=== PATIENT | male | born 1970 | race Caucasian/White ===

== ENCOUNTER → 2020-06-14 17:09 | Outpatient (CLI) | payer BC, SELFPAY ==
--- NOTE | ~2020-06-14 | XR_ITS ---
EXAMINATION: XR lumbar spine min 4V DATE: 06/14/2020 17:26 INDICATION: Lumbago. Left-sided sciatica. TECHNIQUE: 5 views of lumbar spine were obtained. COMPARISON: None. FINDINGS: Bone alignment is normal. Vertebral body heights are normal. There is severely decreased di sc height at L5-S1. There is moderate facet joint osteoarthritis bilaterally at L5-S1. IMPRESSION: 1. Severe degenerative disc disease at L5-S1. Reviewed, dictated and finalized at location A.
== END ==
PROVIDERS: PCP Family Medicine; Visit Provider Family Medicine
DX: G89.29 Other chronic pain (principal); M54.42 Lumbago with sciatica, left side; M51.37 Other intervertebral disc degeneration, lumbosacral region
CPT/HCPCS: 72110

== ENCOUNTER 2020-07-26 07:53 | Outpatient (CLI) | payer BC, SELFPAY ==
--- NOTE | 2020-08-26 14:23 | WPDHOMESLEEP ---
Sleep Study - Home Unattended Date of Study: 07/26/20 Ordering Provider: Marko Norman MD Interpreting Physician: Jayne Stevenson MD Home Sleep Study Type: Apnea Link Air Height: 1.88 m Weight: 111.13 kg Body Mass Index: 31.4 Neck Circumference (inches): 18 [place]: 9 Reason for Sleep Study snoring and gasping Sleep History Jere Kc is a 50 year-old man who has a history of constant loud snoring. It bothers other people to the point they complain about it. He occasionally awakens at night with heartburn, belching or coughing. He occasionally awakens from sleep feeling short of breath. He occasionally has trouble sleep with a cold and occasionally gasps for breath during the night. He frequently has breathing problems at night observed by others. He occasionally sweats excessively at night. He rarely notices his heart pounding or beating irregularly at night. He occasionally falls asleep during the day, involuntarily but never while driving. He does not have loss of muscle tone was strong emotion. He occasionally has daytime difficulties due to excessive sleepiness. He is not afraid to go to sleep. He rarely has nightmares. He occasionally remembers his dreams. He occasionally has racing thoughts. He does not feel sad or depressed. He occasionally has anxiety. He does not have muscular tension, noticing parts of his body jerking, kick at night, have crawling and aching feelings in his legs or have leg pain during the night. He does not have morning jaw pain. He does not grind his teeth during sleep. He is not bothered by pain during the day. He occasionally is awakened by pain at night and wakes up feeling stiff in the morning. He does not wake up with sore achy muscles. He occasionally has pain in the spine. Normal bedtime is 8:00 p.m. falling asleep within 15 minutes waking 4 times at night for about 5 minutes. While awake he goes to the bathroom and gets a drink of water. He wakes the morning at 4:40 a.m.. He estimates 8 hours of sleep at night. On the weekends he goes to bed 1 hour later and wakes up at 6:00 a.m. He does not take naps. Most of the time he feels good in the morning Habits: Never smoked. Caffeine 2 servings per day. Alcohol 3 beverages per day. no recreational drugs. . [facility] Past Medical History Medical History (Updated 08/26/20 @ 14:59 by Jayne Stevenson MD) Abnormal fasting glucose Acute non-recurrent maxillary sinusitis Essential (primary) hypertension Hypersomnia Seasonal allergic rhinitis Surgical History Surgical History (Updated 08/26/20 @ 14:43 by Jayne Stevenson MD) History of ankle surgery Family History Family History Mother Hypertension Father Acute myocardial infarction Grandparent Cerebrovascular accident Family history of malignant neoplasm Social History Social History Smoking status: Never smoker Alcohol intake: current Medications Home Medications Medication Instructions Recorded Confirmed Type fluticasone propionate 50 1 spray NASAL BID #19.8 ml 12/14/19 06/14/20 Rx mcg/actuation nasal spray,suspension albuterol sulfate 90 mcg/actuation 2 inhalation INHALATION Q4H PRN 02/24/20 06/14/20 Rx aerosol inhaler #18 gm clomiphene citrate 50 mg tablet 50 mg PO DAILY #30 tablet 02/24/20 06/14/20 Rx meloxicam 15 mg tablet 15 mg PO DAILY PRN #30 tablet 06/14/20 06/14/20 Rx duloxetine 60 mg capsule,delayed 60 mg PO DAILY #30 cap 06/19/20 Rx release telmisartan 80 mg tablet 80 mg PO DAILY #30 tablet 08/10/20 Rx Sleep Procedure This test was performed using 4 channel monitoring including respiratory effort channel, snoring channel, heart rate channel, and oxygen saturation channel. This study was scored using CMS guidelines. Sleep Architecture Not applicable for home sleep test. Respiratory Analysis The recor
[2020-08-26 15:12] VITALS: BMI 31.4
== END 2020-07-26 07:54 | disposition home or self-care (01) ==
LOC: ANHCSM 07:53
PROVIDERS: PCP Family Medicine; Visit Provider Family Medicine
DX: G47.10 Hypersomnia, unspecified (principal); G47.33 Obstructive sleep apnea (adult) (pediatric)
CPT/HCPCS: 95806

== ENCOUNTER 2020-10-05 00:11 | Outpatient (CLI) | payer BC, SELFPAY ==
[2020-10-05 17:28] LABS: SARS-CoV-2 RNA PCR Negative
== END 2020-10-05 00:12 | disposition home or self-care (01) ==
LOC: ANHCOVIDDT 00:11
PROVIDERS: PCP Family Medicine; Visit Provider Internal Medicine Critical Care Medicine
DX: Z01.812 Encounter for preprocedural laboratory examination (principal); Z20.822 Contact with and (suspected) exposure to COVID-19
CPT/HCPCS: C9803; U0003; U0005

== ENCOUNTER 2020-10-07 09:45 | Outpatient (CLI) | payer BC, SELFPAY ==
--- NOTE | 2020-11-05 21:42 | WPDSLEEPSTUD ---
Sleep Study Date of Study: 10/07/20 Ordering Provider: Marko Norman MD Interpreting Physician: Jayne Stevenson MD Sleep Study Type: CPAP Titration Height: 1.83 m Weight: 112.491 kg Body Mass Index: 33.6 Neck Circumference: 45.72 cm [place]: 9 Reason for Sleep Study Home Sleep Test 07/26/2020 with AHI 12, lowest desaturation 70%, patient presents for a CPAP titration Sleep History Jere Kc is a 50 year-old man who has a history of constant loud snoring. It bothers other people to the point they complain about it. He occasionally awakens at night with heartburn, belching or coughing. He occasionally awakens from sleep feeling short of breath. He occasionally has trouble sleep with a cold and occasionally gasps for breath during the night. He frequently has breathing problems at night observed by others. He occasionally sweats excessively at night. He rarely notices his heart pounding or beating irregularly at night. He occasionally falls asleep during the day, involuntarily but never while driving. He does not have loss of muscle tone was strong emotion. He occasionally has daytime difficulties due to excessive sleepiness. He is not afraid to go to sleep. He rarely has nightmares. He occasionally remembers his dreams. He occasionally has racing thoughts. He does not feel sad or depressed. He occasionally has anxiety. He does not have muscular tension, noticing parts of his body jerking, kick at night, have crawling and aching feelings in his legs or have leg pain during the night. He does not have morning jaw pain. He does not grind his teeth during sleep. He is not bothered by pain during the day. He occasionally is awakened by pain at night and wakes up feeling stiff in the morning. He does not wake up with sore achy muscles. He occasionally has pain in the spine. Normal bedtime is 8:00 p.m. falling asleep within 15 minutes waking 4 times at night for about 5 minutes. While awake he goes to the bathroom and gets a drink of water. He wakes the morning at 4:40 a.m.. He estimates 8 hours of sleep at night. On the weekends he goes to bed 1 hour later and wakes up at 6:00 a.m. He does not take naps. Most of the time he feels good in the morning Habits: Never smoked. Caffeine 2 servings per day. Alcohol 3 beverages per day. no recreational drugs. . [facility] Past Medical History Medical History Abnormal fasting glucose (07/05/20) Acute non-recurrent maxillary sinusitis BMI 33.0-33.9,adult Essential (primary) hypertension Hypersomnia Seasonal allergic rhinitis Surgical History Surgical History History of ankle surgery Family History Family History Mother Hypertension Father Acute myocardial infarction Grandparent Cerebrovascular accident Family history of malignant neoplasm Social History Social History (Updated 10/17/20 @ 16:31 by Geovanna Martinez MA) Smoking status: Never smoker Alcohol intake: current Drinks per week: 10 Substance use: never Substance use type: does not use Medications Home Medications Medication Instructions Recorded Confirmed Type fluticasone propionate 50 1 spray NASAL BID #19.8 ml 12/14/19 06/14/20 Rx mcg/actuation nasal spray,suspension albuterol sulfate 90 mcg/actuation 2 inhalation INHALATION Q4H PRN 02/24/20 06/14/20 Rx aerosol inhaler #18 gm clomiphene citrate 50 mg tablet 50 mg PO DAILY #30 tablet 02/24/20 06/14/20 Rx meloxicam 15 mg tablet 15 mg PO DAILY PRN #30 tablet 06/14/20 06/14/20 Rx duloxetine 60 mg capsule,delayed 60 mg PO DAILY #30 cap 06/19/20 Rx release telmisartan 80 mg tablet 80 mg PO DAILY #30 tablet 08/10/20 Rx metoprolol succinate 50 mg 50 mg PO DAILY #30 tablet 09/02/20 Rx tablet,extended release 24 hr sildenafil 100 mg tablet 100 mg P
[2020-11-05 21:44] VITALS: BMI 33.6
== END 2020-10-07 09:46 | disposition home or self-care (01) ==
LOC: ANHCSM 09:46
PROVIDERS: PCP Family Medicine; Visit Provider Family Medicine
DX: G47.33 Obstructive sleep apnea (adult) (pediatric) (principal)
CPT/HCPCS: 95811

== ENCOUNTER 2021-12-11 01:11 | Day surgery (SDC) | payer BC, SELFPAY ==
[2021-11-29 13:38] VITALS: BMI 32.2
[2021-12-11 07:48] VITALS: BMI 31.8
[2021-12-11 07:51] VITALS: BP 134/88; PULSE 73; RESP 16; TEMP 36.2; O2SAT 98
[2021-12-11] MEDS: LACTATED RINGERS 1,000 ML 150 ML IV CONT (07:53)
--- NOTE | 2021-12-11 08:20 | PM.HPGS ---
History of Present Illness History of Present Illness Consent: Risks, benefits, and alternatives have been discussed and questions answered. Patient agrees to proceed with procedure. Chief complaint: neoplasm screening Narrative: Jere Kc is a 51 year old male here for first screening colonoscopy Review of Systems Constitutional: Constitutional: Denies headache(s) and Denies weakness Eyes: Eyes: Denies blurry vision ENT: Reports Normal hearing present, Denies headache(s) and Denies neck pain Cardiovascular: Cardiovascular: Denies chest pain and Denies dyspnea Respiratory: Respiratory: Denies dyspnea Gastrointestinal: Gastrointestinal: Reports no additional gastrointestinal complaints Genitourinary: Genitourinary: Denies dysuria Musculoskeletal: Musculoskeletal: Denies neck pain Integumentary/Breasts: Skin/Breast: Denies dry skin Neurologic: Reports Normal hearing present, Denies headache(s) and Denies weakness Psychiatric: Psychiatric: Denies anxiety Endocrine: Endocrine: Denies change in body appearance Hematologic/Lymphatic: Hematologic/Lymphatic: Denies easy bleeding Allergic/Immunologic: Allergic/Immunologic: Denies urticaria PMF Past Medical History Medical History (Updated 12/11/21 @ 08:20 by Jose Tai MD) Abnormal fasting glucose (07/05/20) Acute non-recurrent maxillary sinusitis BMI 33.0-33.9,adult BMI 35.0-35.9,adult BMI 36.0-36.9,adult Chronic depression Colon cancer screening COVID-19 (~08/23/21) Encounter for prostate cancer screening Essential (primary) hypertension Hypersomnia Mixed hyperlipidemia Neoplasm of skin Otitis media Seasonal allergic rhinitis Surgical History Surgical History History of ankle surgery Family History Family History Mother Hypertension Father Acute myocardial infarction Grandparent Cerebrovascular accident Family history of malignant neoplasm Social History Social History (Updated 10/17/20 @ 16:31 by Geovanna Martinez MA) Smoking status: Never smoker Alcohol intake: current Drinks per week: 14 Substance use: never Substance use type: does not use Living arrangements: with family Spiritual care concerns: No Meds Home Medications and Allergies Home Medications Medication Instructions Recorded Confirmed Type fluticasone propionate 50 1 spray NASAL BID #19.8 ml 12/14/19 12/11/21 Rx mcg/actuation nasal spray,suspension albuterol sulfate 90 mcg/actuation 2 inhalation INHALATION Q4H PRN 02/24/20 12/11/21 Rx aerosol inhaler #18 gm sildenafil 100 mg tablet 100 mg PO DAILY PRN #10 tablet 09/19/20 11/29/21 Rx ibuprofen 800 mg tablet 800 mg PO TID PRN #90 tablet 01/23/21 12/11/21 Rx metoprolol succinate 50 mg 50 mg PO DAILY #30 tablet 07/31/21 12/11/21 Rx tablet,extended release 24 hr telmisartan 80 mg tablet 80 mg PO DAILY #90 tablet 08/02/21 12/11/21 Rx scopolamine base 1 mg over 3 days 1 patch TRANSDERMAL Q72H PRN #3 ea 08/07/21 12/11/21 Rx transdermal patch cefdinir 300 mg capsule 300 mg PO Q12H #20 cap 12/06/21 12/11/21 Rx Allergies Allergy/AdvReac Type Severity Reaction Status Date / Time cetirizine Allergy Unknown Hives Verified 12/11/21 07:46 Vital Signs Vital Signs - 24 hr 12/11/21 07:51 Temperature 97.2 F L Pulse Rate 73 Respiratory Rate 16 Blood Pressure 134/88 Pulse Oximetry 98 Exam Const: General: comfortable and no acute distress HENMT: General nose exam: Normal nares present Eyes: General: appearance normal, both eyes and all related structures Neck: Neck: no JVD Resp: Auscultation: clear to auscultation bilaterally Cardio: Rate: regular rate Rhythm: regular rhythm GI: Inspection: non-distended GI Palp: Yes Soft to palpation Skin: General skin exam: normal color Neuro: General: gait normal Speech: normal speech Extrem:
--- NOTE | 2021-12-11 08:25 | WPDANESEPPF ---
Anes - Initial Pre Proc Eval Procedure: Operation Date: 12/11/21 09:00 Proposed Procedures p Screening Colonoscopy - Jose Tai MD Date/Time: 12/11/21 08:25 Surgeon: Jose Tai MD Pre Op Diagnosis: neoplasm screening Patient Data Age: 51 Gender: M Height: 1.88 m Weight: 112.4 kg Last Vital Signs Temp 97.2 F L 12/11/21 07:51 Pulse 73 12/11/21 07:51 Resp 16 12/11/21 07:51 BP 134/88 12/11/21 07:51 Pulse Ox 98 12/11/21 07:51 Allergies Allergy/AdvReac Type Severity Reaction Status Date / Time cetirizine Allergy Unknown Hives Verified 12/11/21 07:46 Home Medications Medication Instructions Recorded Confirmed Type fluticasone propionate 50 1 spray NASAL BID #19.8 ml 12/14/19 12/11/21 Rx mcg/actuation nasal spray,suspension albuterol sulfate 90 mcg/actuation 2 inhalation INHALATION Q4H PRN 02/24/20 12/11/21 Rx aerosol inhaler #18 gm sildenafil 100 mg tablet 100 mg PO DAILY PRN #10 tablet 09/19/20 11/29/21 Rx ibuprofen 800 mg tablet 800 mg PO TID PRN #90 tablet 01/23/21 12/11/21 Rx metoprolol succinate 50 mg 50 mg PO DAILY #30 tablet 07/31/21 12/11/21 Rx tablet,extended release 24 hr telmisartan 80 mg tablet 80 mg PO DAILY #90 tablet 08/02/21 12/11/21 Rx scopolamine base 1 mg over 3 days 1 patch TRANSDERMAL Q72H PRN #3 ea 08/07/21 12/11/21 Rx transdermal patch cefdinir 300 mg capsule 300 mg PO Q12H #20 cap 12/06/21 12/11/21 Rx Patient hx anesthesia problems: none Family hx anesthesia problems: none Results Review: All pre-operative results and documents have been reviewed as part of the pre-operative evaluation. [facility] Past Medical History Medical History (Updated 12/11/21 @ 08:20 by Jose Tai MD) Abnormal fasting glucose (07/05/20) Acute non-recurrent maxillary sinusitis BMI 33.0-33.9,adult BMI 35.0-35.9,adult BMI 36.0-36.9,adult Chronic depression Colon cancer screening COVID-19 (~08/23/21) Encounter for prostate cancer screening Essential (primary) hypertension Hypersomnia Mixed hyperlipidemia Neoplasm of skin Otitis media Seasonal allergic rhinitis Surgical History Surgical History History of ankle surgery Family History Family History Mother Hypertension Father Acute myocardial infarction Grandparent Cerebrovascular accident Family history of malignant neoplasm Social History Social History (Updated 10/17/20 @ 16:31 by Geovanna Martinez MA) Smoking status: Never smoker Alcohol intake: current Drinks per week: 14 Substance use: never Substance use type: does not use Living arrangements: with family Spiritual care concerns: No Anes - Eval Final PreProcedure Day of Procedure 12/11/21 08:25 Patient weight: obese Heart: regular rate and rhythm Lungs: clear to auscultation Airway: Mallampati scale Neurological: alert and oriented Last oral intake: >/= 8 hours ASA classification: III Emergent: no Anesthetic plan: proceed Anesthesia type and monitoring: general GIVS and standard monitoring Results Review: All pre-operative results and documents have been reviewed as part of the pre-operative evaluation. Informed Consent: The patient's anesthetic plan and its attendant risks and benefits were discussed with the patient/family/POA. Questions were solicited and answers provided to the satisfaction of the patient/family/POA.
[2021-12-11 08:48] VITALS: BP 109/67; PULSE 71; RESP 18; O2SAT 96
[2021-12-11 08:58] VITALS: BP 118/80; PULSE 68; RESP 17; O2SAT 95
[2021-12-11 09:08] VITALS: BP 122/88; PULSE 66; RESP 16; O2SAT 99
== END 2021-12-11 09:11 | disposition home or self-care (01) ==
PROVIDERS: PCP Family Medicine; Visit Provider Internal Medicine Gastroenterology
PROC: 0DJD8ZZ Inspection of Lower Intestinal Tract, Via Natural or Artificial Opening Endoscopic (ICD-10-PCS; CPT 45378; principal; 2021-12-11 09:00)
DX: Z12.11 Encounter for screening for malignant neoplasm of colon (principal); D12.8 Benign neoplasm of rectum; K63.5 Polyp of colon; K64.8 Other hemorrhoids; Z79.51 Long term (current) use of inhaled steroids; E78.2 Mixed hyperlipidemia; F32.9 Major depressive disorder, single episode, unspecified; Z86.16 Personal history of COVID-19; I10 Essential (primary) hypertension; G47.10 Hypersomnia, unspecified; R73.09 Other abnormal glucose; E66.9 Obesity, unspecified; Z68.31 Body mass index [BMI] 31.0-31.9, adult
CPT/HCPCS: 43235; 88305; J2001; J2704; J7120

== ENCOUNTER → 2023-02-05 15:36 | Outpatient (CLI) | payer BC, SELFPAY ==
--- NOTE | ~2023-02-05 | XR_ITS ---
EXAMINATION: XR chest 2V 02/05/2023 15:45 INDICATION: Chronic productive cough PROCEDURE: 2 view chest COMPARISON: No prior studies for comparison. FINDINGS: The lungs are clear. The cardiomediastinal silhouette is within normal limits. There are no pleural effusions. There is no pneumothorax suspected. IMPRESSION: 1: NO ACUTE CARDIOPULMONARY DISEASE. Reviewed, dictated and finalized at location L.
== END ==
PROVIDERS: PCP Family Medicine; Visit Provider Family Medicine
DX: R05.3 Chronic cough (principal)
CPT/HCPCS: 71046

== ENCOUNTER 2023-02-28 08:06 | Outpatient (CLI) | payer BC, SELFPAY ==
--- NOTE | 2023-02-28 12:25 | WPDPFTINT ---
PFT Procedure Performed PFT Procedure Performed Spirometry with Pre/Post Bronchodilator Plethysmography (Lung Vol) Diffusing Cap (DLCO) Flow Vol Loop PFT Interpretation Lung volumes were measured with the body plethysmography method. Lung volumes are unremarkable. Spirometry showed diminished expiratory flow rates and a diminished FEV1 to FVC ratio of 63%, indicative of obstructive airway disease. Following administration of a bronchodilator there was no significant increase in the expiratory flow rates. Lung diffusion capacity is within the normal range at 120% predicted. The flow-volume loop is unremarkable. Impression: Mild obstructive airway disease with no response to bronchodilators on this testing. Lung diffusion capacity within the normal range.
== END 2023-02-28 08:07 | disposition home or self-care (01) ==
PROVIDERS: PCP Family Medicine; Visit Provider Family Medicine
DX: R05.3 Chronic cough (principal); R94.2 Abnormal results of pulmonary function studies
CPT/HCPCS: 94060; 94726; 94729

== ENCOUNTER 2023-04-08 08:11 | Outpatient (CLI) | payer BC, SELFPAY ==
--- NOTE | ~2023-04-08 | CT_ITS ---
CT Scan of the Chest without Contrast: Clinical Indication: Cough Technique: Contiguous sections were acquired throughout the chest without intravenous contrast. Dose reduction technique was used on this scan by utilizing automated exposure control and iterative recon struction technique. The dose-length product (DLP) was 616.68 mGy-cm. Findings: There is no evidence of any significant mediastinal, hilar or axillary lymphadenopathy. The mediastin al soft tissues appear normal. There is no evidence of pleural or pericardial effusion. The lungs are clear. No pulmonary nodules or infiltrates are noted. Images through the upper abdomen reveal no abnormalities. Impression: No significant abnormalities seen. Reviewed, dictated and finalized at location . Impression: No significant abnormalities seen.
== END 2023-04-08 08:12 | disposition home or self-care (01) ==
PROVIDERS: PCP Family Medicine; Visit Provider Physician Assistant
DX: R05.3 Chronic cough (principal)
CPT/HCPCS: 71250

== ENCOUNTER 2024-12-17 06:17 | Emergency (ER) | payer BC, SELFPAY ==
[2024-12-17] VITALS (33 sets, daily range): BP systolic 113–144; BP diastolic 68–94; PULSE 74–99; RESP 11–27; TEMP 36.4; O2SAT 95–99
--- NOTE | ~2024-12-17 | XR_ITS ---
Clinical Indication: Chest pain PA and lateral views of the chest: Comparison: 02/05/2023 Findings: The lungs are clear, without evidence of focal consolidation or pleural effusion. Cardiome diastinal silhouette is within normal limits. Bones and soft tissues are unremarkable. Impression: Normal chest. Reviewed, dictated and finalized at location . Impression: Normal chest.
--- NOTE | 2024-12-17 06:19 | ECG_ITS ---
Test Date: 2024-12-17 06:26:12 Measurements Intervals [place] Rate: 93 P: 49 GA: 180 QRS: -22 QRSD: 102 T: 64 QT: 328 QTc: 410 Interpretive Statements SINUS RHYTHM INCOMPLETE RIGHT BUNDLE BRANCH BLOCK BASELINE ARTIFACT- I, II, AVR, AVL BORDERLINE ECG No previous ECG available for comparison Electronically Signed On 12-17-2024 07:50:19 CDT by Evaristo Ferrer D.O.
--- OUTSIDE RECORDS SUMMARY | 2024-12-17 06:19 | XMS_ITS ---
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 Name Role Phone Norma Pedro Unavailable [phone] REASON FOR VISIT Chronic upper airway symptoms concerning for uncontrolled atopic disease, Chronic lower airways symptoms concerning for possible asthma Problems Problem Type SNOMED Code ICD Code Onset Dates Problem Status W/U Status Risk Notes Problem Allergic rhinitis caused by pollen (disorder) (30041145) Allergic rhinitis due to pollen (J30.1) Active confirmed Problem Allergic rhinitis caused by animal hair and dander (882082993428959) Allergic rhinitis due to animal (cat) (dog) hair and dander (J30.81) Active confirmed Problem Allergic rhinitis (03711374) Other allergic rhinitis (J30.89) Active confirmed Problem Chronic allergic conjunctivitis (96017924) Other chronic allergic conjunctivitis (H10.45) Active confirmed Problem Chronic rhinitis (86335351) Chronic rhinitis (J31.0) Active confirmed Problem Uncomplicated moderate persistent asthma (526448166) Moderate persistent asthma, uncomplicated (J45.40) Active confirmed Problem Uncomplicated mild persistent asthma (641667356) Mild persistent asthma, uncomplicated (J45.30) Active confirmed Problem Uncomplicated severe persistent asthma (578092444) Severe persistent asthma, uncomplicated (J45.50) Active confirmed Encounters Encounter Location Date Provider Diagnosis [facility] [address] [address] 08/07/2023 Norma Pedro Allergic rhinitis du e to pollen J30.1 ; Allergic rhinitis due to animal (cat) (dog) hair and dander J30.81 ; Other allergic rhinitis J30.89 ; Other chronic allergic conjunctivitis H10.45 ; Hypertrophy of nasal turbinates J34.3 ; Chronic rhinitis J31.0 ; Moderate persistent asthma, uncomplicated J45.40 ; Mild persistent asthma, uncomplicated J45.30 and Severe persistent asthma, uncomplicated J45.50 Assessments Encounter Date Diagnosis (ICD Code) Assessment Notes Treatment Notes Treatment Clinical Notes Section Notes 08/07/2023 Allergic rhinitis due to pollen (ICD-10 - J30.1) Given the history and symptoms, skin testing was performed to common aeroallergens to determine atopic status. clearly suffers from atopic disease based upon our skin testing and clinical history. Accordingly, we have introduced a new, aggressive medication regimen, discussed nasal washes and allergy-specific avoidance measures. We also discussed adjunctive therapies including subcutaneous, specific allergen immunotherapy as relates to the treatment and prevention of atopic disease. They are currently considering the risks, benefits and alternatives to this care. Risks: bleeding, infection, allergic reaction, anaphylaxis; Benefits: reduced need for medications, improved symptoms, disease modification. Alternatives: watch/wait, change medication regimen, improve allergy avoidance measures. Follow-up in 1 month for interval evaluation and management 08/07/2023 Allergic rhinitis due to animal (cat) (dog) hair and dander (ICD-10 - J30.81) Follow allergen avoidance, meds and consider SCIT as an adjunctive treatment to current regimen 08/07/2023 Other allergic rhinitis (ICD-10 - J30.89) Follow allergen avoidance, meds and consider SCIT as an adjunctive treatment to current regimen 08/07/2023 Other chronic allergic conjunctivitis (ICD-10 - H10.45) Given ocular signs and symptoms I encouraged allergy avoidance measures and meds as above. If symptoms persist, consider adding additional medications including intraocular antihistamine/mas t cell stabilizer, PRN and consider SCIT as an adjunctive measure 08/07/2023 Hypertrophy of nasal turbinates (ICD-10 - J34.3) 08/07/2023 Chronic rhinitis (ICD-10 - J31.0) 08/07/2023 Moderate persistent asthma, uncomplicated (ICD-10 - J45.40) 08/07/2023 Mild persistent asthma, uncomplicated (ICD-10 - J45.30) 08/07/2023 Severe persistent asthma, uncomplicated (ICD-10 - J45.50) Plan Of Treatment Treatment Notes Assessment Notes Allergic rhinitis due to pollen Given th e history and symptoms, skin testing was performed to common aeroallergens to determine atopic status. clearly suffers from atopic disease based upon our skin testing and clinical history. Accordingly, we have introduced a new, aggressive medication regimen, discussed nasal washes and allergy-specific avoidance measures. We also discussed adjunctive therapies including subcutaneous, specific allergen immunotherapy as relates to the treatment and prevention of atopic disease. They are currently considering the risks, benefits and alternatives to this care. Risks: bleeding, infection, allergic reaction, anaphylaxis; Benefits: reduced need for medications, improved symptoms, disease modification. Alternatives: watch/wait, change medication regimen, improve allergy avoidance measures. Follow-up in 1 month for interval evaluation and management Allergic rhinitis due to ani mal (cat) (dog) hair and dander Follow allergen avoidance, meds and consider SCIT as an adjunctive treatment to current regimen Other allergic rhinitis Follow allergen avoidance, meds and consider SCIT as an adjunctive treatment to current regimen Other chronic allergic conjunctivitis Gi augustine ocular signs and symptoms I encouraged allergy avoidance measures and meds as above. If symptoms persist, consider adding additional medications including intraocular antihistamine/mast cell stabilizer, PRN and consider SCIT as an adjunctive measure Next Appt Details Follow Up: 4 Weeks, Reason: Evaluation and Management Progress Notes * Jere BEAULIEUDOB: 1 (54 yo M)Acc No.[id number]:08/07/2023 Progress Notes Patient: Jere RODRIGUEZ Provider: ED WaldropP-BC :1970 A ge:53 Y S ex:Male Date:08/07/2023 Address:[address] [place], [place] [id number] Subjective: * Chief Complaints: * 1 . Chronic upper airway symptoms concerning for uncontrolled atopic disease. 2. Chronic lower airways symptoms concerning for possible asthma. * HPI: * Introduction: I had the pleasure of seeing x . * ROS: A LLERGY: Positive p er the HPI and history, otherwise unremarkable.? S PECIAL SENSES: Positve for n one. C ONSTITUTIONAL: Positive for n one. E NT: Positive p er the HPI and history, otherwise unremarkable.? R ESPIRATORY: Positive p er the HPI and history, otherwise unremakable.? O PHTHALMOLOGY: Positive for p er the HPI and history, otherwise unremarkable. E NDOCRINOLOGY: Positive for n one. C ARDIOLOGY: Positive for n one. G ASTROENTEROLOGY: Positive for n one. U ROLOGY: Positive for n one. D ERMATOLOGY: Positive for p er the HPI and history, otherwise unremakable. N EUROLOGY: Positive for n one. H EMATOLOGY/LYMPH: Positive for n one. M USCULOSKELETAL: Positive for n one. P SYCHOLOGY: Positive for n one. A ll other review of systems per the HPI and history, otherwise unremarkable. * Medical History: Objective: * Vitals: * Examination: G eneral examination: General appearance: p leasant, well-developed, well-nourished. HEENT: p upils equal, round, and reactive to light and accommodation, conjunctiva are injected bilaterally, no tenderness to palpation of the sinuses, TM's without evidence of acute infection, turbinates 2+ swollen and pale inferiorly bilaterally, clear rhinorrhea is present, no polyps noted, no septal perforation, posterior oropharynx is erythematous and cobblestoning is present, erythema on pharyngeal wall, no exudates, no tongue swelling, and uvula is midline. Oral cavity: n ormal, no lesions. Neck, thyroid : s upple, non-tender, no anterior cervical lymphadenopathy. Breasts : n ot performed. Heart: R RR, S1-S2, no murmurs, no rubs, no gallops. Lungs: c lear to auscultation and percussion in all lung smith, no wheezes or crackles. Abdomen: s oft, NT/ND, normal active bowel sounds. Neurologic exam: u nremarkable. Skin: n ormal, no rash, dermatographism, urticaria, angioedema. Peripheral pulses: n ormal (2+) bilaterally. Back: n ormal. Extremities: n ormal ROM, no clubbing, no cyanosis, no edema. Genitalia: n ot performed. Assessment: * Assessment: 1. A llergic rhinitis due to pollen - J30.1 (Primary) 2 . A llergic rhinitis due to animal (cat) (dog) hair and dander - J30.81 3 . O ther allergic rhinitis - J30.89 4 . O ther chronic allergic conjunctivitis - H10.45 5 . H ypertrophy of nasal turbinates - J34.3 6 . C hronic rhinitis - J31.0? 7. M oderate persistent asthma, uncomplicated - J45.40 8 . M ild persistent asthma, uncomplicated - J45.30 9 . S evere persistent asthma, uncomplicated - J45.50 Plan: * Treatment: 2. A llergic rhinitis due to animal (cat) (dog) hair and dander Notes: Follow allergen avoidance, meds and consider SCIT as an adjunctive treatment to current regimen 3. O ther allergic rhinitis Notes: Follow allergen avoidance, meds and consider SCIT as an adjunctive treatment to current regimen 4. O ther chronic allergic conjunctivitis Notes: Given ocular signs and symptoms I encouraged allergy avoidance measures and meds as above. If symptoms persist, consider adding additional medications including intraocular antihistamine/mast cell stabilizer, PRN and consider SCIT as an adjunctive measure * Procedure Codes: 9 5004 PRICK TESTS, Units: 72.00 , 66310 INTRADERMAL TESTS, 29706 MEASURE BLOOD OXYGEN LEVEL, 20867 SELF-MGMT EDUC & TRAIN, 1 PT, S9441 ASTHMA ED NON-MD PROV PER SESSION, 01918 PT-FOCUSED HLTH RISK ASSMT, G8427 DOC MEDS VERIFIED W/PT OR RE * Preventive Medicine: Counseling: M edication instruction: W atch for side effects of prescribed medications, Nasal steroid/antihistamine instruction: avoid septum. E ducation: G ENERAL EDUCATION: Our staff spent an additional 30 minutes in direct contact with the patient educating them on their current diagnoses and proper treatment and prevention of symptoms and the proper use of medications. E ducation 2: A RC EDUCATION: Our staff discussed the appropriate allergen avoidance measures and medication utilization including upper airway hygiene with daily nasal washes given the patient's clinical status and diagnoses. SCIT EDUCATION: Discussed allergy immunotherapy including the relative risks, benefits and alternatives to this treatment as an adjunctive measure to current therapy, Allergy Immunotherapy: Risks: bleeding, infection, allergic reaction, anaphylaxis = severe allergic reaction that can cause ; Benefits: reduced need for medications, improved symptoms, disease modification. Alternatives: watch/wait, change medication regimen, improve allergy avoidance measures, Our staff discussed the warning signs of anaphylaxis and the indications to use self-injectable epinephrine and seek urgent or emergent care. P atient education material sent to portal? Y es * Follow Up: 4 Weeks (Reason: Evaluation and Management) * Billing Information: * Visit Code: * Procedure Codes: 50705 PRICK TESTS. Units: 72.00. 76513 INTRADERMAL TESTS. 64772 MEASURE BLOOD OXYGEN LEVEL. 24087 SELF-MGMT EDUC & TRAIN, 1 PT. S9441 ASTHMA ED NON-MD PROV PER SESSION. 65688 PT-FOCUSED HLTH RISK ASSMT. G8427 DOC MEDS VERIFIED W/PT OR RE. * Electronic signature of DUKE López on 12/17/2024 at 06:19 AM CDT Sign off status: Pending * Provider: DUKE Waldrop Date: 1 10/07/2022 Generated for Franklin silva/Jim/Ankur on: 0 12/17/2024 06:19 AM CDT History and Physical Notes * HPI (History of Present Illness) Category Sub-Category Detail Notes Category Not es *Introduction I had the pleasure of seeing x Examination Category Sub-Category Detail Notes Category Not es General examination HEENT: pupils equal , round, and reactive to light and accommodation, conjunctiva are injected bilaterally, no tenderness to palpation of the sinuses, TM's without evidence of acute infection, turbinates 2+ swollen and pale inferiorly bilaterally, clear rhinorrhea is present, no polyps noted, no septal perforation, posterior oropharynx is erythematous and cobblestoning is present, erythema on pharyngeal wall, no exudates, no tongue swelling, and uvula is midline Neck, thyroid : supple, non-tender, no anterior cervical lymphadenopathy Heart: RRR, S1-S2, no murmu rs, no rubs, no gallops Lungs: clear to auscultatio n and percussion in all lung smith, no wheezes or crackles Abdomen: soft, NT/ND, normal active bowel sounds Extremities: normal ROM, no clubb ing, no cyanosis, no edema General appearance: pleasant, well-devel oped, well-nourished Skin: normal, no rash, aliza matographism, urticaria, angioedema Neurologic exam: unremarkable Oral cavity: normal, no lesions Breasts : not performed Peripheral pulses: normal (2+) bilatera lly Back: normal Genitalia: not performed
--- OUTSIDE RECORDS SUMMARY | 2024-12-17 06:20 | XMS_ITS | Patient Health Record ---
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 Name Role Phone Norma Pedro Unavailable [phone] Reason For Referral No Information Problems Problem Type SNOMED Code ICD Code Onset Dates Problem Status W/U Status Risk Notes Problem Chronic allergic conjunctivitis (44684602) Other chronic allergic conjunctivitis (H10.45) Active confirmed Problem Allergic rhinitis caused by pollen (disorder) (65117380) Allergic rhinitis due to pollen (J30.1) Active confirmed Problem Allergic rhinitis (20761279) Other allergic rhinitis (J30.89) Active confirmed Problem Chronic rhinitis (81772514) Chronic rhinitis (J31.0) Active confirmed Problem Uncomplicated mild persistent asthma (265638218) Mild persistent asthma, uncomplicated (J45.30) Active confirmed Problem Uncomplicated moderate persistent asthma (026512091) Moderate persistent asthma, uncomplicated (J45.40) Active confirmed Problem Uncomplicated severe persistent asthma (266398617) Severe persistent asthma, uncomplicated (J45.50) Active confirmed Problem Allergic rhinitis caused by animal hair and dander (775173242268430) Allergic rhinitis due to animal (cat) (dog) hair and dander (J30.81) Active confirmed Plan Of Treatment No Information Insurance Providers Payer Name Payer Address Payer Phone Subscriber Number Group Number Insured Name Patient Relationship to Insured Coverage Start Date Coverage End Date [facility] [id number] [place] [address] [phone] [id number] Jere Kc Self - patient is the insured
--- OUTSIDE RECORDS SUMMARY | 2024-12-17 06:20 | XMS_ITS ---
Author Organization [facility] Address [address] [place] [address] Care Team Providers Care Licsw Name Role Phone Norma Pedro Unavailable [phone] Tayler [place] Unavailable [phone] REASON FOR VISIT QUALITY CONTROL LEAD Allergies Encounters Encounter Location Date Provider Diagnosis [facility] [address] [place] [address] 08/21/2023 Tayler [place] Plan Of Treatment No Information Progress Notes * Jere BEAULIEUDOB: 1 (54 yo M)Acc No.[id number]:08/21/2023 Progress Notes Patient: Jere RODRIGUEZ Provider: Pio [place] MD :1970 A ge:53 Y S ex:Male Date:08/21/2023 Address:[address] [place], [place] [id number] Subjective: * Chief Complaints: * 1 . QUALITY CONTROL LEAD Allergies. * Medical History: Objective: * Vitals: Assessment: Plan: * Treatment: * Billing Information: * Visit Code: * Procedure Codes: * Electronic signature of Gillian [place] MD on 12/17/2024 at 06:19 AM CDT Sign off status: Pending * Provider: Pio [place] MD Date: 1 10/22/2022 Generated for Franklin silva/Jim/eTransmitting on: 0 12/17/2024 06:19 AM CDT
[2024-12-17 06:33] LABS: Basophils Absolute Auto 0.1 K/mm3 (0.0-0.1); Basophils Percent Auto 0.6 % (0.2-1.2); Eosinophils Absolute Auto 0.3 K/mm3 (0-0.3); Hematocrit 47.6 % (42.0-52.0); Hemoglobin 16.2 g/dL (14.0-18.0); Immature Granulocyte Absolute 0.04 K/mm3 (0.00-0.031); Immature Granulocyte Percent A 0.3 % (0-0.5); Lymphocytes Absolute Auto 1.39 K/mm3 (0.9-3.2); Lymphocytes Percent Auto 10.8 % (18.3-44.2); Mean Corpuscular Hemoglobin 31.4 pg (26-34); Mean Corpuscular Volume 92.2 fl (80-100); Mean Platelet Volume 9.7 fl (7.4-10.4); Monocytes Absolute Auto 0.9 K/mm3 (0.1-0.6); Monocytes Percent Auto 6.8 % (2.6-8.5); Neutrophils Absolute Auto 10.2 K/mm3 (1.3-6.7); Neutrophils Percent Auto 79.5 % (45.5-73.1); Platelet Count Result 182 k/mm3 (150-375); Red Blood Count 5.16 M/mm3 (4.6-6.20); Red Cell Distribution Width 13.1 % (11.5-14.5); White Blood Count 12.9 K/mm3 (4.5-10.0)
[2024-12-17 06:45] LABS: Alanine Aminotransferase 31 U/L (6-50); Albumin Level 4.8 g/dL (3.5-5.1); Alkaline Phosphatase 71 U/L (38-126); Anion Gap 9 mmol/L (4-12); Aspartate Amino Transferase 25 U/L (17-59); Bilirubin,Total 1.1 mg/dL (0.2-1.3); Blood Urea Nitrogen 20 mg/dL (9-20); Calcium 9.5 mg/dL (8.4-10.2); Carbon Dioxide 25 mmol/L (22-30); Chloride 101 mmol/L (98-107); Estimated CRCL calculation 94 ml/min; Estimated Glomerular Filt Rate > 60; Glucose 111 mg/dL (65-110); Lipase 265 U/L (23-300); Potassium 4.6 mmol/L (3.4-5.0); Sodium 135 mmol/L (137-145)
[2024-12-17 06:46] LABS: INR 0.9; Prothrombin Time 12.7 Seconds (11.1-14.7)
[2024-12-17 06:47] LABS: Partial Thromboplastin Time 27.6 Seconds (22.3-36.8)
[2024-12-17 06:56] LABS: Troponin I < 0.012 ng/mL (0.000-0.034)
[2024-12-17] MEDS: FAMOTIDINE 20 MG/2 ML VIAL IV PUSH (07:25)
[2024-12-17] MEDS: BELLADONNA ALK/PHENOB ELIX 10 ML, MAG HYDROX/ALUMINUM HYD/SIMETH 30 ML, LIDOCAINE 2% VI... PO (07:26)
[2024-12-17] MEDS: PANTOPRAZOLE SODIUM IV 40 MG VIAL IV PUSH (07:26)
--- NOTE | 2024-12-17 07:49 | ED_ITS ---
HPI - General Adult General Chief complaint: Chest Pain Stated complaint: chest pain Time Seen by Provider: 12/17/24 06:56 History of Present Illness HPI narrative: 54-year-old male presenting to the emergency department for evaluation for epigastric pain and hiccups. Patient has had worsening symptoms over the last few days. Patient states he does have a sore throat and does have some pain with swallowing and describes a chest tightness. Patient states he does take Tums and this has not been helping. Patient does have a history of heartburn. Patient has never had a scope by GI. Patient does take ibuprofen and does drink alcohol daily. Patient has no prior cardiac history. Patient does have history of hypertension, high cholesterol and suspected diabetes. Related Data Allergies Allergy/AdvReac Type Severity Reaction Status Date / Time cetirizine Allergy Unknown Hives Verified 12/17/24 06:17 Review of Systems 2 Review of Systems: All systems reviewed & are unremarkable except as noted in HPI and below PMFSH Past Medical History Medical History (Updated 12/17/24 @ 13:56 by Marko Norman MD) GERD (gastroesophageal reflux disease) Shortness of breath Spermatocele Grieving father December, at age of 91. 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 Normal chest x-ray 02/05/2023. pulmonary function study on 02/28/2023 reveals mild obstructive defect with no improvement with bronchodilator. CT of the chest on 04/08/2023 was unremarkable. BMI 34.0-34.9,adult Obesity (BMI 30.0-34.9) Polyp of colon (12/11/21) 2 small colon polyps on for screening colonoscopy 12/11/[address] Aceves with recheck in 5 years . Colon cancer screening COVID-19 (~08/23/21) BMI 35.0-35.9,adult Mixed hyperlipidemia Total cholesterol 176, HDL 33, triglycerides 491, LDL not calculated 07/21/2022. Total cholesterol 180, HDL 28, triglycerides 617, LDL not calculated, ratio 6.4 on 01/26/2023. cholesterol 163, triglycerides 387, HDL 30, LDL 81 with ratio of 5.4 on 08/16/2023. Cholesterol 153, triglycerides 207 is 35, LDL 82 with ratio 4.4 on 03/04/2024. Cholesterol 163, triglycerides 435, HDL 29, LDL not calculated, ratio 5.6 on 09/12/2024. Neoplasm of skin (08/06/22) 0.3 cm raised, pearly lesion left posterior regular posterior auricular area and 0.8 cm raised, flesh colored macule right lateral thigh 08/06/2022. Chronic depression BMI 36.0-36.9,adult Encounter for prostate cancer screening PSA 0.57 on 08/16/2023. PSA 0.78 on 09/12/2024. Otitis media BMI 33.0-33.9,adult Hypersomnia Abnormal fasting glucose (07/05/20) Fasting glucose 105 with hemoglobin A1c 5.8 on 07/21/2022. Fasting glucose 116 with hemoglobin A1c 6.1 on 01/26/2023. Glucose 103 with hemoglobin A1c 5.9 on 08/16/2023. Glucose 100 with hemoglobin A1c 6.2 on 03/04/24. Glucose 105, hemoglobin A1c 6.1, urine microalbumin ratio of 3, GFR 72 on 09/12/2024. Seasonal allergic rhinitis Acute non-recurrent maxillary sinusitis Essential (primary) hypertension Surgical History Surgical History History of ankle surgery Family History Family History Mother Hypertension Father Acute myocardial infarction Grandparent Cerebrovascular accident Family history of malignant neoplasm Social History Social History Smoking status: Never smoker Alcohol intake: current Alcohol use details: socially Substance use: never Substance use type: does not use Lack of Transportation: No Lack of Food: Never True Current Housing: I Have Housing Concerned About Future Housing: No Difficulty Paying Gas/Electric Bills: No Difficulty Paying for Meds: No Currently Unemployed: No Education: Associate Degree Difficulty w/ Childcare or Family Care: No Living arrangements: with family Occupation/Education: occupation Gender identity (if verbalized by the patient): Male Spiritual care concerns: No Exam 2 Narrative: APPEARANCE: Well appearing, no pain, no distress, well-nourished. HEAD: normocephalic, atraumatic. EYES: PERRLA/EOMI, conjunctivae clear. NOSE: Normal no drainage EARS:TMS clear with good light reflex. THROAT: Pharynx clear, no exudate. NECK: Supple. No adenopathy, no masses. RESPIRATORY: Airway patent, respirations nonlabored. Clear to auscultation bilaterally, no rales, rhonchi, wheezing. CARDIOVASCULAR: Regular rate and rhythm without murmurs rubs or gallops. ABDOMINAL: Soft, nontender, nondistended, normal bowel sounds MUSCULOSKELETAL: Moves all extremities. Strength/ROM intact, No edema, No calf tenderness. NEURO: Alert. Cranial nerves II through XII intact. Grossly SKIN: Warm, dry. Normal Color Course Vital Signs Vital signs: Vital Signs Temperature 97.6 F 12/17/24 06:21 Pulse Rate 99 12/17/24 06:21 Respiratory Rate 17 12/17/24 06:21 Blood Pressure 144/94 H 12/17/24 06:21 Pulse Oximetry 97 12/17/24 06:21 Oxygen Delivery Room Air 12/17/24 06:21 Temperature 97.6 F 12/17/24 06:21 Pulse Rate 76 12/17/24 09:46 Respiratory Rate 20 12/17/24 09:46 Blood Pressure 121/74 12/17/24 09:46 Pulse Oximetry 99 12/17/24 09:46 Oxygen Delivery Room Air 12/17/24 06:29 Medical Decision Making [facility] Narrative Medical decision making narrative: 54-year-old male present to the emergency department for evaluation for epigastric pain. Patient has no reproducible tenderness to palpation. Patient's lipase is normal. Patient has no fever but does have a mild white count of 12.9 with a stable hemoglobin of 16.2. INR 0.9. No significant abnormalities on the patient's CMP. Patient distal troponin was negative. Chest x-ray shows no acute cardiopulmonary abnormality. EKG shows normal sinus rhythm with an incomplete right bundle branch block. No evidence of acute STEMI. Patient was treated with IV Protonix, IV famotidine an a GI cocktail. Patient reported no significant change in his symptoms. Patient had negative serial EKGs and negative serial troponins. Patient was encouraged to take omeprazole, avoid NSAIDs avoid alcohol and to have follow-up with GI. Patient was also encouraged close follow-up with primary care physician. Differential Diagnosis Differential Diagnosis: ACS, esophagitis, gastritis, esophageal spasm Vital Signs Vital Signs: Vital Signs Temperature 97.6 F 12/17/24 06:21 Pulse Rate 99 12/17/24 06:21 Respiratory Rate 17 12/17/24 06:21 Blood Pressure 144/94 H 12/17/24 06:21 Pulse Oximetry 97 12/17/24 06:21 Oxygen Delivery Room Air 12/17/24 06:21 Temperature 97.6 F 12/17/24 06:21 Pulse Rate 76 12/17/24 09:46 Respiratory Rate 20 12/17/24 09:46 Blood Pressure 121/74 12/17/24 09:46 Pulse Oximetry 99 12/17/24 09:46 Oxygen Delivery Room Air 12/17/24 06:29 Lab Data Lab results reviewed: Yes I reviewed the patient's lab results. 12/17/24 06:27 12/17/24 06:27 Labs: Lab Results 12/17/24 12/17/24 Range/Units 06:27 09:21 WBC 12.9 H (4.5-10.0) K/mm3 RBC 5.16 (4.6-6.20) M/mm3 Hgb 16.2 (14.0-18.0) g/dL Hct 47.6 (42.0-52.0) % MCV 92.2 (80-100) fl MCH 31.4 (26-34) pg MCHC 34.0 (32-36) g/dl RDW 13.1 (11.5-14.5) % Plt Count 182 (150-375) k/mm3 MPV 9.7 (7.4-10.4) fl Immature Gran % (Auto) 0.3 (0-0.5) % Neut % (Auto) 79.5 H (45.5-73.1) % Lymph % (Auto) 10.8 L (18.3-44.2) % Kidder % (Auto) 6.8 (2.6-8.5) % Eos % (Auto) 2.0 (0-4.4) % Baso % (Auto) 0.6 (0.2-1.2) % Lymph # (Auto) 1.39 (0.9-3.2) K/mm3 Kidder # (Auto) 0.9 H (0.1-0.6) K/mm3 Eos # (Auto) 0.3 (0-0.3) K/mm3 Baso # (Auto) 0.1 (0.0-0.1) K/mm3 Abs Immat Gran (auto) 0.04 H (0.00-0.031) K/mm3 Absolute Neuts (auto) 10.2 H (1.3-6.7) K/mm3 Absolute Nucleated RBC 0.000 (0.0-0.012) K/mm3 Nucleated RBC % 0.0 (0.0-0.2) % PT 12.7 (11.1-14.7) Seconds INR 0.9 APTT 27.6 (22.3-36.8) Seconds Sodium 135 L (137-145) mmol/L Potassium 4.6 (3.4-5.0) mmol/L Chloride 101 (98-107) mmol/L Carbon Dioxide 25 (22-30) mmol/L Anion Gap 9 (4-12) mmol/L BUN 20 (9-20) mg/dL Creatinine 1.07 (0.7-1.3) mg/dL Estim Creat Clear Calc 94 ml/min Estimated GFR > 60 (59 - ) Glucose 111 H (65-110) mg/dL Calcium 9.5 (8.4-10.2) mg/dL Total Bilirubin 1.1 (0.2-1.3) mg/dL AST 25 (17-59) U/L ALT 31 (6-50) U/L Alkaline Phosphatase 71 (38-126) U/L Troponin I < 0.012 < 0.012 (0.000-0.034) ng/mL Total Protein 8.0 (6.3-8.2) g/dL Albumin 4.8 (3.5-5.1) g/dL Lipase 265 (23-300) U/L Imaging Data Radiologist's impression: Impressions Chest X-Ray 12/17/24 06:45 Impression: Normal chest. Discharge Plan Discharge Clinical Impression: Abdominal pain, epigastric, Chest pain Patient Disposition: Home, Self-Care Condition: Stable Instructions: Antibiotic Form, Chest Pain (ED), Diet for Stomach Ulcers and Gastritis (ED) Additional Instructions: Follow a bland diet. Avoid NSAIDs and avoid alcohol. Take omeprazole as directed for the next 14 days. Maalox as needed for intermittent epigastric pain. Have close follow-up with your primary care physician for additional outpatient cardiac testing. Have close follow-up with GI for additional evaluation for esophagitis/gastritis. Patient Language: Greek Prescriptions: New omeprazole 20 mg capsule,delayed release(DR/EC) 20 mg PO DAILY 14 Days Qty: 14 0RF No Action Wegovy 1 mg/0.5 mL pen injector 1 mg subcut WEEKLY Qty: 2 11RF albuterol sulfate 90 mcg/actuation HFA aerosol inhaler 2 inh INHALATION Q4H PRN (Reason: shortness of breath or wheezing) Qty: 8.5 11RF ibuprofen 800 mg tablet 800 mg PO TID PRN (Reason: pain) Qty: 90 11RF sildenafil [Viagra] 100 mg tablet 100 mg PO DAILY PRN (Reason: sexual activity) Qty: 10 11RF Rx Instructions: administer 30 minutes to 4 hours before activity telmisartan 80 mg tablet 80 mg PO DAILY Qty: 90 3RF metoprolol succinate 50 mg tablet extended release 24 hr 50 mg PO DAILY Qty: 30 11RF cefdinir 300 mg capsule 300 mg PO Q12H Qty: 20 0RF budesonide-formoterol 160-4.5 mcg/actuation HFA aerosol inhaler See Rx Instructions .ROUTE .COMPLEX Qty: 30.6 1RF Dose Instruction: INHALE 2 PUFFS BY MOUTH EVERY 12 HOURS *RINSE MOUTH & SPIT AFTER EACH USE Rx Instructions: INHALE 2 PUFFS BY MOUTH EVERY 12 HOURS *RINSE MOUTH & SPIT AFTER EACH USE testosterone [AndroGel] 20.25 mg/1.25 gram (1.62 %) gel in metered-dose pump 4 pump topical DAILY Qty: 150 5RF Rx Instructions: apply 2 pumps over max area of EACH upper arm and shoulder Follow-up/Referrals: Marko Norman MD [Primary Care Provider] - Dean Theodore MD [Physician] - Quality HEART score for chest pain patients History: slightly suspicious ECG: normal Age: > 45 and < 65 years Risk factors: 1 or 2 risk factors Troponin: < or = to 1x normal limit Heart score: 2
--- NOTE | 2024-12-17 09:14 | ECG_ITS ---
Test Date: 2024-12-17 09:17:41 Measurements Intervals [place] Rate: 76 P: 26 [place]: 187 QRS: -12 QRSD: 105 T: 50 QT: 361 QTc: 407 Interpretive Statements SINUS RHYTHM INCOMPLETE RIGHT BUNDLE BRANCH BLOCK BORDERLINE ECG Compared to ECG 12/17/2024 06:26:12 NO SIGNIFICANT CHANGE Electronically Signed On 12-17-2024 09:24:31 CDT by Evaristo Ferrer D.O.
[2024-12-17 10:07] LABS: Troponin I < 0.012 ng/mL (0.000-0.034)
== END 2024-12-17 10:38 | disposition home or self-care (01) ==
PROVIDERS: Student in an Organized Health Care Education/Training Program; Emergency Provider Emergency Medicine; PCP Family Medicine
DX: R10.13 Epigastric pain (principal); R07.9 Chest pain, unspecified; I10 Essential (primary) hypertension; E78.2 Mixed hyperlipidemia
CPT/HCPCS: 36415; 71046; 80053; 83690; 84484; 85025; 85610; 85730; 93005; 96374; 96375; 99284; A9270; J2470

== ENCOUNTER 2024-12-24 01:53 | Day surgery (SDC) | payer BC, SELFPAY ==
[2024-12-22 08:40] VITALS: BMI 30.7
--- OUTSIDE RECORDS SUMMARY | 2024-12-24 01:55 | XMS_ITS ---
Author Organization [facility] Address [address] [place] [id number] Care Team Providers [facility] Counselor Name Role Phone Norma Pedro Unavailable [phone] REASON FOR VISIT Chronic upper airway symptoms concerning for uncontrolled atopic disease, Chronic lower airways symptoms concerning for possible asthma Problems Problem Type SNOMED Code ICD Code Onset Dates Problem Status W/U Status Risk Notes Problem Allergic rhinitis caused by pollen (disorder) (72073835) Allergic rhinitis due to pollen (J30.1) Active confirmed Problem Allergic rhinitis caused by animal hair and dander (424086766671288) Allergic rhinitis due to animal (cat) (dog) hair and dander (J30.81) Active confirmed Problem Allergic rhinitis (97022345) Other allergic rhinitis (J30.89) Active confirmed Problem Chronic allergic conjunctivitis (74307795) Other chronic allergic conjunctivitis (H10.45) Active confirmed Problem Chronic rhinitis (61246832) Chronic rhinitis (J31.0) Active confirmed Problem Uncomplicated moderate persistent asthma (862678723) Moderate persistent asthma, uncomplicated (J45.40) Active confirmed Problem Uncomplicated mild persistent asthma (592045115) Mild persistent asthma, uncomplicated (J45.30) Active confirmed Problem Uncomplicated severe persistent asthma (595743393) Severe persistent asthma, uncomplicated (J45.50) Active confirmed Encounters Encounter Location Date Provider Diagnosis [facility] [address] [address] 08/07/2023 Norma Pedro Allergic rhinitis du e [...] * Jere BEAULIEUDOB: 1 (54 yo M)Acc No.[id number]:08/07/2023 Progress Notes Patient: Jere RODRIGUEZ Provider: ED WaldropP-BC :1970 A ge:53 Y S ex:Male Date:08/07/2023 Address:[address] [place], [place] [id number] Subjective: * Chief Complaints: * 1 . [...] 9 5004 PRICK TESTS, Units: 72.00 , 05543 INTRADERMAL TESTS, 26591 MEASURE BLOOD OXYGEN LEVEL, 35317 SELF-MGMT EDUC & TRAIN, 1 PT, S9441 ASTHMA ED NON-MD PROV PER SESSION, 20829 PT-FOCUSED HLTH RISK ASSMT, G8427 DOC MEDS [...] Information: * Visit Code: * Procedure Codes: 37766 PRICK TESTS. Units: 72.00. 17653 INTRADERMAL TESTS. 38004 MEASURE BLOOD OXYGEN LEVEL. 49824 SELF-MGMT EDUC & TRAIN, 1 PT. S9441 ASTHMA ED NON-MD PROV PER SESSION. 35224 PT-FOCUSED HLTH RISK ASSMT. G8427 DOC MEDS VERIFIED W/PT OR RE. * Electronic signature of DUKE López on 12/24/2024 at 01:55 AM CDT Sign off status: Pending * Provider: DUKE Waldrop Date: 1 10/07/2022 Generated for Franklin silva/Jim/Ankur on: 0 12/24/2024 01:55 AM CDT History and Physical Notes * [...]
--- OUTSIDE RECORDS SUMMARY | 2024-12-24 01:55 | XMS_ITS | Encounter Summary ---
Author Organization [facility] Address [facility] [place] [address] Care Team Providers Care Network Operations Center Technician Name Role Phone Cristo Norman MD Primary Care Provider [phone] Reason for Referral * Imaging (Routine) - Closed Specialty Diagnoses / Procedures Referred By Sierra hassan Referred To Contact RADIOLOGY Diagnoses Mixed hyperlipidemia Procedures CT HEART SCREEN CALCIUM SCORE Cristo Ledezma MD [address] [place] [address] [address] [place] [address] Phone: tel: fax: Referral ID Status Reason Start Date Expiration Date Visits Re quested Visits Authorized [id number] Closed 12/18/2024 12/18/2025 1 1 Reason for Visit * Imaging (Routine) - Closed Specialty Diagnoses / Procedures Referred By Sierra hassan Referred To Contact RADIOLOGY Diagnoses Mixed hyperlipidemia Procedures CT HEART SCREEN CALCIUM SCORE Cristo Ledezma MD [address] [place] [address] [address] [place] [address] Phone: tel: fax: Referral ID Status Reason Start Date Expiration Date Visits Re quested Visits Authorized [id number] Closed 12/18/2024 12/18/2025 1 1 Encounter Details Date Type Department Care Team (Latest Contact Info) Description 12/22/2024 12:03 PM CDT - 12/22/2024 11:59 PM CDT Hospital Encounter [facility] [address] [place] [address] Cristo Norman MD [address] [address] [address] [place] [address] Arrived Discharge Disposition: Home or Self Care (Routine Discharge) Social History Tobacco Use Types Packs/Day Years Used Date Smoking Tobacco: Never Assessed Sex and Gender Information Value Date Recorded Sex Assigned at Not on file Legal Sex Male 11:40 AM CDT Gender Identity Not on file Sexual Orientation Not on file documented as of this encounter Plan of Treatment Not on file documented as of this encounter Procedures Procedure Name Priority Date/Time Associated Diagnosis Comments CT HEART SCREEN CALCIUM SCORE PROMO Routine 12/22/2024 12:16 PM CDT Mixed hyperlipidemia documented in this encounter Results * CT HEART SCREEN CALCIUM SCORE PROMO (12/22/2024 12:16 PM CDT) Anatomical Region Laterality Modality Chest Computed Tomogra phy 12/22/2024 12:1 7 PM CDT Impressions 12/22/2024 12:18 PM CDT =====IMPRESSION:===== Total Score: 0 No plaque, very low risk, very unlikely for probability of significant CAD Ordered By: CRISTO NORMAN Interpreted By: Don Miranda MD, 12/22/2024 12:17 PM Narrative 12/22/2024 12:18 PM CDT [address] [place] [address] EXAMINATION: Multislice Helical CT Coronary Calcium Scoring REASON FOR EXAM: Screening for heart disease COMPARISON: None TECHNIQUE: Multislice helical CT images of the proximal coronary arteries with a computer generated calcification score. A dose lowering technique was used for this procedure, which may include, but is not limited to, dose reduction technique, automated exposure control, iterative reconstruction, ALARA (As Low As Reasonably Achievable), or Image Gently techniques. Results: Left main: 0 LAD: 0 Circumflex: 0 Right coronary: 0 Total Score: 0 Comments: There is no mediastinal adenopathy, and there are no pulmonary nodules in the visualized portions of the chest. Calcium score guidelines: Total Score* Calcium Plaque Adams *Risk *Probability of significant CAD 0 No Plaque Very Low Very unlikely 1-10 Minimal Plaque Low Unlikely 11-100 Mild Plaque Moderate Low likelihood of significant stenosis <50% 101-400 Moderate Plaque Moderately High Moderate likelihood of significant stenosis (>50%) Over 400 Extensive Plaque High High likelihood of significant stenosis (>50%) The amount of coronary artery calcification correlates with the severity of coronary atherosclerosis and the probability of future significant event. Calcification is not site specific for stenosis and does not identify non-calcified atherosclerotic plaque, but rather indicates the extent of atherosclerosis in the coronary arteries overall. The score may be used as an indicator for risk factor modification or additional cardiac testing. Significant change in calcium score over time may be indicative of subsequent disease development or useful as a benchmark to assess preventative programs. Procedure Note Don Miranda MD - 12/22/2024 [place] [address] EXAMINATION: Multislice Helical CT Coronary Calcium Scoring REASON FOR EXAM: Screening for heart disease COMPARISON: None TECHNIQUE: Multislice helical CT images of the proximal coronary arterieswith a computer generated calcification score. A dose lowering techniquewas used for this procedure, which may include, but is not limited to,dose reduction technique, automated exposure control, iterativereconstruction, ALARA (As Low As Reasonably Achievable), or Image Gentlytechniques. Results: Left main: 0 LAD: 0 Circumflex: 0 Right coronary: 0 Total Score: 0 Comments: There is no mediastinal adenopathy, and there are no pulmonarynodules in the visualized portions of the chest. Calcium score guidelines: Total Score* Calcium Plaque Adams *Risk *Probability ofsignificant CAD 0 No Plaque Very LowVery unlikely 1-10 Minimal Plaque LowUnlikely 11-100 Mild Plaque ModerateLow likelihood of significant stenosis <50% 101-400 Moderate Plaque Moderately HighModerate likelihood of significant stenosis (>50%) Over 400 Extensive Plaque HighHigh likelihood of significant stenosis (>50%) The amount of coronary artery calcification correlates with the severityof coronary atherosclerosis and the probability of future significantevent. Calcification is not site specific for stenosis and does notidentify non-calcified atherosclerotic plaque, but rather indicates theextent of atherosclerosis in the coronary arteries overall. The score may be used as an indicator for risk factor modification oradditional cardiac testing. Significant change in calcium score over timemay be indicative of subsequent disease development or useful as abenchmark to assess preventative programs. =====IMPRESSION:===== Total Score: 0 No plaque, very low risk, very unlikely for probability ofsignificant CAD Ordered By: CRISTO NORMAN Interpreted By: Don Miranda MD, 12/22/2024 12:17 PM us Cristo Norman MD CT Final Resul t documented in this encounter Visit Diagnoses Diagnosis Mixed hyperlipidemia documented in this encounter Care Teams Network Operations Center Technician Relationship Specialty Start Date End Date Cristo Norman MD [address] [place] [address] [address] [place] [address] PCP - General FAMILY PRACTICE 12/18/24 documented as of this encounter
--- OUTSIDE RECORDS SUMMARY | 2024-12-24 01:55 | XMS_ITS | Clinical Summary ---
Author Organization [facility] Address [facility] [place] [address] Care Team Providers Care Lead Level Designer Name Role Phone Cristo Norman MD Primary Care Provider [phone] Encounters Date Type Department Care Team Description 12/22/2024 12:03 PM CDT - 12/22/2024 11:59 PM CDT Hospital Encounter [facility] [address] [place] [address] Cristo Norman MD Arrived Discharge Disposition: Home or Self Care (Routine Discharge) 12/22/2024 Travel from Last 3 Months Social History Tobacco Use Types Packs/Day Years Used Date Smoking Tobacco: Never Assessed Sex and Gender Information Value Date Recorded Sex Assigned at Not on file Legal Sex Male 11:40 AM CDT Gender Identity Not on file Sexual Orientation Not on file Plan of Treatment Health Maintenance Due Date Last Done Comments Colorectal Cancer Screening Colonoscopy (10 Years) 1971 Annual Physical 1974 Hepatitis C 1989 Hepatitis B Vaccines (1 of 3 - 19+ 3-dose series) 1990 COVID-19 Vaccine ( season) 2024 07/21/2022, 03/26/2022, 12/16/2020, Additional history exists DTaP, Tdap and Td Vaccines (2 - Td or Tdap) 09/29/2032 09/29/2022 Zoster Vaccines Completed 09/29/2022, 07/21/2022 Meningococcal B Vaccine Aged Out No l onger eligible based on patient's age to complete this topic Meningococcal Vaccine Aged Out No andrei christo eligible based on patient's age to complete this topic Pneumococcal Vaccine: Pediatrics (0 to 5 Years) and At-Risk Patients (6 to 64 Years) Aged Out No longer eligible based on patient's age to complete this topic RSV Immunizations Under 20 Months Aged Out No longer eligible based on patient's age to complete this topic Procedures Procedure Name Priority Date/Time Associated Diagnosis Comments CT HEART SCREEN CALCIUM SCORE PROMO Routine 12/22/2024 12:16 PM CDT Mixed hyperlipidemia from Last 3 Months Results * CT HEART SCREEN CALCIUM SCORE PROMO (12/22/2024 12:16 PM CDT) Anatomical Region Laterality Modality Chest Computed Tomogra phy 12/22/2024 12:1 7 PM CDT Impressions 12/22/2024 12:18 PM CDT =====IMPRESSION:===== Total Score: 0 No plaque, very low risk, very unlikely for probability of significant CAD Ordered By: CRISTO NORMAN Interpreted By: Don Miranda MD, 12/22/2024 12:17 PM Narrative 12/22/2024 12:18 PM CDT [address] [address] EXAMINATION: Multislice Helical CT Coronary Calcium Scoring [...] Calcium score guidelines: Total Score* Calcium Plaque [place] *Risk *Probability of significant CAD 0 No [...] Procedure Note Don Miranda MD - 12/22/2024 [address] [place] [address] EXAMINATION: Multislice Helical CT Coronary Calcium Scoring [...] Calcium score guidelines: Total Score* Calcium Plaque [place] *Risk *Probability ofsignificant CAD 0 No Plaque [...] Cristo Norman MD CT Final Resul t from Last [address] [place] [address] [place] [address] Care Teams Lead Level Designer Relationship Specialty Start Date End Date Cristo Norman MD [address] [place] [address] [address] [place] [address] PCP - General FAMILY PRACTICE 12/18/24
--- OUTSIDE RECORDS SUMMARY | 2024-12-24 01:56 | XMS_ITS ---
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 * Medical History: Objective: * Vitals: Assessment: Plan: * Treatment: * Billing Information: * Visit Code: * Procedure Codes: * Electronic signature of Gillian Norman MD on 12/24/2024 at 01:55 AM CDT Sign off status: Pending * Provider: Pio Norman MD Date: 1 10/22/2022 Generated for Franklin silva/Jim/eTransmitting on: 0 12/24/2024 01:55 AM CDT
--- OUTSIDE RECORDS SUMMARY | 2024-12-24 01:56 | XMS_ITS | Patient Health Record ---
Author Organization [facility] Address [address] [place] [address] Care Team Providers Care Life Educator Name Role Phone Norma Pedro Unavailable [phone] Reason For Referral No Information Problems Problem Type SNOMED Code ICD Code Onset Dates Problem Status W/U Status Risk Notes Problem Chronic allergic conjunctivitis (24816523) Other chronic allergic conjunctivitis (H10.45) Active confirmed Problem Allergic rhinitis caused by pollen (disorder) (01545149) Allergic rhinitis due to pollen (J30.1) Active confirmed Problem Allergic rhinitis (20357176) Other allergic rhinitis (J30.89) Active confirmed Problem Chronic rhinitis (89667318) Chronic rhinitis (J31.0) Active confirmed Problem Uncomplicated mild persistent asthma (361358618) Mild persistent asthma, uncomplicated (J45.30) Active confirmed Problem Uncomplicated moderate persistent asthma (877371493) Moderate persistent asthma, uncomplicated (J45.40) Active confirmed Problem Uncomplicated severe persistent asthma (192992769) Severe persistent asthma, uncomplicated (J45.50) Active confirmed Problem Allergic rhinitis caused by animal hair and dander (992404014153568) Allergic rhinitis due to animal (cat) (dog) hair and dander (J30.81) Active confirmed Plan Of Treatment No Information Insurance Providers Payer Name Payer Address Payer Phone Subscriber Number Group Number Insured Name Patient Relationship to Insured Coverage Start Date Coverage End Date [facility] [address] [place] [address] [phone] [id number] Jere Kc Self - patient is the insured
[2024-12-24 09:38] VITALS: BP 151/89; PULSE 96; RESP 20; TEMP 36.4; O2SAT 97; BMI 31.1
[2024-12-24] MEDS: LACTATED RINGERS 1,000 ML 150 ML IV CONT (09:41)
[2024-12-24 09:53] LABS: Glucose Point of Care 105 mg/dl (65-105)
--- NOTE | 2024-12-24 10:13 | P.PNAN_ITS ---
Anes - Initial Pre Proc Eval Procedure: Operation Date: 12/24/24 10:45 Proposed Procedures p Esophagogastroduodenoscopy - Jose Tai MD Date/Time: 12/24/24 10:13 Surgeon: Jose Tai MD Pre Op Diagnosis: Gastro-esophageal reflux disease without esophagit Patient Data Age: 54 Gender: M Height: 1.88 m Weight: 110.2 kg Last Vital Signs Temp 97.6 F 12/24/24 09:38 Pulse 96 12/24/24 09:38 Resp 20 12/24/24 09:38 BP 151/89 H 12/24/24 09:38 Pulse Ox 97 12/24/24 09:38 O2 Del Method Room Air 12/24/24 09:38 Allergies Allergy/AdvReac Type Severity Reaction Status Date / Time cetirizine Allergy Unknown Hives Verified 12/24/24 09:35 Home Medications ?Medication ?Instructions ?Recorded ?Confirmed ?Type sildenafil 100 mg tablet (Viagra) 100 mg PO DAILY PRN sexual 09/19/20 12/22/24 Rx activity #10 tabs ibuprofen 800 mg tablet 800 mg PO TID PRN pain #90 tabs 01/23/21 12/22/24 Rx telmisartan 80 mg tablet 80 mg PO DAILY #90 tabs 12/05/23 12/24/24 Rx semaglutide (weight loss) 1 mg/0.5 1 mg (0.5 mL) subcut WEEKLY #2 mL 10/06/24 12/24/24 Rx mL subcutaneous pen injector (Wegovy) albuterol sulfate 90 mcg/actuation 2 inh inhalation Q4H PRN shortness 10/07/24 12/22/24 Rx aerosol inhaler of breath or wheezing #8.5 grams budesonide-formoterol HFA 160 See Rx Instructions .Route 10/19/24 12/24/24 Rx mcg-4.5 mcg/actuation aerosol .COMPLEX #30.6 ea inhaler testosterone (AndroGel) 4 pump topical DAILY #150 grams 10/26/24 12/24/24 Rx omeprazole 20 mg capsule,delayed 20 mg PO DAILY 14 days #14 caps 12/17/24 12/24/24 Rx release Laboratory Tests 12/24/24 09:49 POC Capillary Glucose 105 mg/dl (65-105) Patient hx anesthesia problems: none Family hx anesthesia problems: none Results Review: All pre-operative results and documents have been reviewed as part of the pre- operative evaluation. [facility] Past Medical History Medical History (Updated 12/18/24 @ 00:01 by Background Alpesh) GERD (gastroesophageal reflux disease) Shortness of breath Spermatocele Grieving father December, at age of 91. 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 Normal chest x-ray 02/05/2023. pulmonary function study on 02/28/2023 reveals mild obstructive defect with no improvement with bronchodilator. CT of the chest on 04/08/2023 was unremarkable. BMI 34.0-34.9,adult Obesity (BMI 30.0-34.9) Polyp of colon (12/11/21) 2 small colon polyps on for screening colonoscopy 12/11/[address] Aceves with recheck in 5 years . Colon cancer screening COVID-19 (~08/23/21) BMI 35.0-35.9,adult Mixed hyperlipidemia Total cholesterol 176, HDL 33, triglycerides 491, LDL not calculated 07/21/2022. Total cholesterol 180, HDL 28, triglycerides 617, LDL not calcu lated, ratio 6.4 on 01/26/2023. cholesterol 163, triglycerides 387, HDL 30, LDL 81 with ratio of 5.4 on 08/16/2023. Cholesterol 153, triglycerides 207 is 35, LDL 82 with ratio 4.4 on 03/04/2024. Cholesterol 163, triglycerides 435, HDL 29, LDL not calculated, ratio 5.6 on 09/12/2024. Neoplasm of skin (08/06/22) 0.3 cm raised, pearly lesion left posterior regular posterior auricular area and 0.8 cm raised, flesh colored macule right lateral thigh 08/06/2022. Chronic depression BMI 36.0-36.9,adult Encounter for prostate cancer screening PSA 0.57 on 08/16/2023. PSA 0.78 on 09/12/2024. Otitis media BMI 33.0-33.9,adult Hypersomnia Abnormal fasting glucose (07/05/20) Fasting glucose 105 with hemoglobin A1c 5.8 on 07/21/2022. Fasting glucose 116 with hemoglobin A1c 6.1 on 01/26/2023. Glucose 103 with hemoglobin A1c 5.9 on 08/16/2023. Glucose 100 with hemoglobin A1c 6.2 on 03/04/24. Glucose 105, hemoglobin A1c 6.1, urine microalbumin ratio of 3, GFR 72 on 09/12/2024. Seasonal allergic rhinitis Acute non-recurrent maxillary sinusitis Essential (primary) hypertension Surgical History Surgical History History of ankle surgery Family History Family History Mother Hypertension Father Acute myocardial infarction Grandparent Cerebrovascular accident Family history of malignant neoplasm Social History Social History Smoking status: Never smoker Alcohol intake: current Drinks per week: 4 Alcohol use details: Beer Substance use: never Substance use type: does not use Lack of Transportation: No Lack of Food: Never True Current Housing: I Have Housing Concerned About Future Housing: No Difficulty Paying Gas/Electric Bills: No Difficulty Paying for Meds: No Currently Unemployed: No Education: Associate Degree Difficulty w/ Childcare or Family Care: No Living arrangements: with family Occupation/Education: occupation Gender identity (if verbalized by the patient): Male Spiritual care concerns: No Anes - Eval Final PreProcedure Day of Procedure 12/24/24 10:13 Patient weight: obese Heart: regular rate and rhythm Lungs: clear to auscultation Airway: Mallampati scale class II Neurological: alert and oriented Last oral intake: >/= 8 hours ASA classification: III Emergent: no Anesthetic plan: proceed Anesthesia type and monitoring: general GIVS and standard monitoring Results Review: All pre-operative results and documents have been reviewed as part of the pre- operative evaluation. Informed Consent: The patient's anesthetic plan and its attendant risks and benefits were discussed with the patient/family/POA. Questions were solicited and answers provided to the satisfaction of the patient/family/POA.
--- NOTE | 2024-12-24 10:24 | PM.HPGS ---
History of Present Illness History of Present Illness Consent: Risks, benefits, and alternatives have been discussed and questions answered. Patient agrees to proceed with procedure. Chief complaint: Gastro-esophageal reflux disease without esophagit Narrative: Jere Kc is a 54 year old male here for first egd, last few days with burping, chest discomfort and dysphagia. He even went to ER recently, given prilosec, mylanta and gi cocktail which is helping. Review of Systems Review of Systems: All systems reviewed & are unremarkable except as noted in HPI and below PMFSH Past Medical History Medical History (Updated 12/24/24 @ 10:25 by Jose Tai MD) Non-cardiac chest pain GERD (gastroesophageal reflux disease) Shortness of breath Spermatocele Grieving father December, at age of 91. 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 Normal chest x-ray 02/05/2023. pulmonary function study on 02/28/2023 reveals mild obstructive defect with no improvement with bronchodilator. CT of the chest on 04/08/2023 was unremarkable. BMI 34.0-34.9,adult Obesity (BMI 30.0-34.9) Polyp of colon (12/11/21) 2 small colon polyps on for screening colonoscopy 12/11/[address] Aceves with recheck in 5 years . Colon cancer screening COVID-19 (~08/23/21) BMI 35.0-35.9,adult Mixed hyperlipidemia Total cholesterol 176, HDL 33, triglycerides 491, LDL not calculated 07/21/2022. Total cholesterol 180, HDL 28, triglycerides 617, LDL not calculated, ratio 6.4 on 01/26/2023. cholesterol 163, triglycerides 387, HDL 30, LDL 81 with ratio of 5.4 on 08/16/2023. Cholesterol 153, triglycerides 207 is 35, LDL 82 with ratio 4.4 on 03/04/2024. Cholesterol 163, triglycerides 435, HDL 29, LDL not calculated, ratio 5.6 on 09/12/2024. Neoplasm of skin (08/06/22) 0.3 cm raised, pearly lesion left posterior regular posterior auricular area and 0.8 cm raised, flesh colored macule right lateral thigh 08/06/2022. Chronic depression BMI 36.0-36.9,adult Encounter for prostate cancer screening PSA 0.57 on 08/16/2023. PSA 0.78 on 09/12/2024. Otitis media BMI 33.0-33.9,adult Hypersomnia Abnormal fasting glucose (07/05/20) Fasting glucose 105 with hemoglobin A1c 5.8 on 07/21/2022. Fasting glucose 116 with hemoglobin A1c 6.1 on 01/26/2023. Glucose 103 with hemoglobin A1c 5.9 on 08/16/2023. Glucose 100 with hemoglobin A1c 6.2 on 03/04/24. Glucose 105, hemoglobin A1c 6.1, urine microalbumin ratio of 3, GFR 72 on 09/12/2024. Seasonal allergic rhinitis Acute non-recurrent maxillary sinusitis Essential (primary) hypertension Surgical History Surgical History History of ankle surgery Family History Family History Mother Hypertension Father Acute myocardial infarction Grandparent Cerebrovascular accident Family history of malignant neoplasm Social History Social History Smoking status: Never smoker Alcohol intake: current Drinks per week: 4 Alcohol use details: Beer Substance use: never Substance use type: does not use Lack of Transportation: No Lack of Food: Never True Current Housing: I Have Housing Concerned About Future Housing: No Difficulty Paying Gas/Electric Bills: No Difficulty Paying for Meds: No Currently Unemployed: No Education: Associate Degree Difficulty w/ Childcare or Family Care: No Living arrangements: with family Occupation/Education: occupation Gender identity (if verbalized by the patient): Male Spiritual care concerns: No Meds Home Medications and Allergies Home Medications ?Medication ?Instructions ?Recorded ?Confirmed ?Type sildenafil 100 mg tablet (Viagra) 100 mg PO DAILY PRN sexual 09/19/20 12/22/24 Rx activity #10 tabs ibuprofen 800 mg tablet 800 mg PO TID PRN pain #90 tabs 01/23/21 12/22/24 Rx telmisartan 80 mg tablet 80 mg PO DAILY #90 tabs 12/05/23 12/24/24 Rx semaglutide (weight loss) 1 mg/0.5 1 mg (0.5 mL) subcut WEEKLY #2 mL 10/06/24 12/24/24 Rx mL subcutaneous pen injector (Wegovy) albuterol sulfate 90 mcg/actuation 2 inh inhalation Q4H PRN shortness 10/07/24 12/22/24 Rx aerosol inhaler of breath or wheezing #8.5 grams budesonide-formoterol HFA 160 See Rx Instructions .Route 10/19/24 12/24/24 Rx mcg-4.5 mcg/actuation aerosol .COMPLEX #30.6 ea inhaler testosterone (AndroGel) 4 pump topical DAILY #150 grams 10/26/24 12/24/24 Rx omeprazole 20 mg capsule,delayed 20 mg PO DAILY 14 days #14 caps 12/17/24 12/24/24 Rx release Allergies Allergy/AdvReac Type Severity Reaction Status Date / Time cetirizine Allergy Unknown Hives Verified 12/24/24 09:35 Vital Signs Vital Signs - 24 hr 12/24/24 09:38 Temperature 97.6 F Pulse Rate 96 Respiratory Rate 20 Blood Pressure 151/89 H Pulse Oximetry 97 Oxygen Delivery Room Air Exam Const: General: comfortable and no acute distress HENMT: Face/Nose/Sinus: Normal nares present Eyes: General: appearance normal, both eyes and all related structures Neck: Neck: no JVD Resp: Auscultation: clear to auscultation bilaterally Cardio: Rate: regular rate Rhythm: regular rhythm GI: Inspection: non-distended GI Palp: Yes Soft to palpation Skin: General skin exam: normal color Neuro: General: gait normal Speech: normal speech Extrem: General: normal to inspection Psych: Mental Status: mental status grossly normal Assessment and Plan Assessment and plan (1) GERD (gastroesophageal reflux disease): Code(s): K21.9 - Gastro-esophageal reflux disease without esophagitis Status: Acute Assessment and Plan: egd with bx (2) Non-cardiac chest pain: Code(s): R07.89 - Other chest pain Status: Acute
[2024-12-24 10:40] VITALS: BP 138/88; PULSE 94; RESP 20; O2SAT 99
[2024-12-24 10:50] VITALS: BP 125/90; PULSE 88; RESP 19; O2SAT 98
[2024-12-24 11:00] VITALS: BP 126/88; PULSE 81; RESP 21; O2SAT 98
== END 2024-12-24 11:05 | disposition home or self-care (01) ==
PROVIDERS: PCP Family Medicine; Referring Provider Family Medicine; Visit Provider Internal Medicine Gastroenterology
PROC: 0DJ08ZZ Inspection of Upper Intestinal Tract, Via Natural or Artificial Opening Endoscopic (ICD-10-PCS; CPT 43239; principal; 2024-12-24 10:45)
DX: K20.0 Eosinophilic esophagitis (principal); K21.9 Gastro-esophageal reflux disease without esophagitis; E78.2 Mixed hyperlipidemia; G47.10 Hypersomnia, unspecified; I10 Essential (primary) hypertension; N43.40 Spermatocele of epididymis, unspecified; R05.3 Chronic cough; E66.9 Obesity, unspecified; Z68.31 Body mass index [BMI] 31.0-31.9, adult; Z79.1 Long term (current) use of non-steroidal anti-inflammatories (NSAID); Z79.85 Long-term (current) use of injectable non-insulin antidiabetic drugs; Z79.51 Long term (current) use of inhaled steroids; Z98.890 Other specified postprocedural states; Z86.0100 Personal history of colon polyps, unspecified; Z80.9 Family history of malignant neoplasm, unspecified; Z82.49 Family history of ischemic heart disease and other diseases of the circulatory system
CPT/HCPCS: 43239; 82948; 88305; J2003; J2704; J7120